=== PATIENT | female | born 1960 | race Caucasian/White ===

== ENCOUNTER 2023-11-15 00:44 | Day surgery (SDC) | payer MEDICARE, SELFPAY ==
[2023-11-01 16:22] VITALS: BMI 35.9
--- NOTE | 2023-11-01 16:33 | PC.NURSE ---
Report to the Outpatient Waiting Room, entrance under the green pavilion located off [facility], at time __7:00AM on date ___11/15/23____. Planned Procedure Time: ___9:00AM . Time changes happen often and if your time is changed the preop area will call you the afternoon before. - You and your visitor will be asked to self-screen and do not enter if you have any COVID symptoms. - A mask is optional within the hospital at this time. Patients may have clear liquids (water, carbonated beverages, clear teas, apple juice) until 3 hours prior to surgery with a maximum of 20 ounces. - No food from midnight until time of surgery - Infants may have breast milk until 4 hours before surgery, infant formula 6 hours prior to surgery. - Children will be allowed to drink immediately following surgery. If applicable, please bring a bottle or sippy cup to assist with drinking. Juice, water, soda, and popsicles are readily available. For infants on formula, please bring formula the day of surgery. Pacifiers are allowed. Take the following medications with a SIP of water the morning of surgery: ____LORAZEPAM, SERTRALINE DO NOT STOP ANY OF YOUR OTHER PRESCRIPTION MEDICATIONS PRIOR TO SURGERY ?EXCEPT THE FOLLOWING Medications to discontinue per physician ___HOLD ALL VITAMINS/SUPPLEMENTS 3 DAYS PRE-OP- LAST DOSE 11/11/[address] LANZA- PT CALLING TO VERIFY Please no make-up, nail citizen of [place], hairspray, perfume, deodorant, or body powder the day of surgery. No jewelry (including any body piercings) or valuables the day of surgery, leave them at home. Please take a shower or bath the night before, or the morning of, surgery with an antibacterial soap. Wear comfortable, loose fitting clothing. Children are encouraged to wear pajamas. - Jewelry must be removed prior to entering the operating room. Rings and piercings that are not removed may be cut off. - The hospital will not accept responsibility for valuables. - Please leave all valuables, including medications, at home the day of surgery. If you are going home after surgery, a licensed car driver must drive you home. - NO public transportation without another adult if you receive anesthesia. - We recommend that an adult stay with you for 24 hours following discharge. - We also recommend that you do not drive, make important decision, drink alcoholic beverages, or take any drugs that were not prescribed by your health care provider for at least 24 hours after your discharge time. For Pediatric surgeries, we recommend two adults accompany the child home. Follow any additional instructions given to you from your surgeon. If you or anyone in your household have experienced Covid symptoms in the past week, please notify your surgeon or the nurse liaison at the phone number below for possible testing. Telephone instructions given to ___PATIENT and asked if any additional questions and then verbalized understanding. Patient advised to call surgeon office or pre surgery nurse liaison [phone] if any additional questions.
[2023-11-15] MEDS: LACTATED RINGERS 1,000 ML 30 ML IV CONT (07:10)
--- NOTE | 2023-11-15 07:14 | WPDHPUPDATE1 ---
History and Physical Update Update Date/Time: 11/15/23 07:14 History and Physical has been reviewed, including an updated exam of the patient. There are NO changes in the patient's condition. Risks, benefits, and alternatives have been discussed and questions answered. Patient agrees to proceed with procedure.
[2023-11-15 07:15] VITALS: BP 139/76; PULSE 95; RESP 16; TEMP 36.1; O2SAT 98
[2023-11-15] MEDS: ACETAMINOPHEN 500 MG TABLET 1000 MG PO (07:15)
--- NOTE | 2023-11-15 07:15 | PM.IMHP ---
H&P: HPI History of Present Illness Date/Time: 11/15/23 07:15 Chief Complaint: Postmenopausal bleeding Narrative: The patient is a 63-year-old with postmenopausal bleeding and a thickened endometrium. It was recommended to undergo D&C hysteroscopy for further evaluation. Risks of infection, bleeding, perforation, and possible pathology are discussed. Patient voices understanding and agrees to proceed. Review of Systems Review of Systems: not repeated day of surgery; patient states no changes in status PMFSH Past Medical History Medical History (Updated 11/15/23 @ 07:18 by Randee Ackerman MD) Anxiety GERD (gastroesophageal reflux disease) HTN (hypertension) Obesity Surgical History Surgical History (Updated 11/15/23 @ 07:18 by Randee Ackerman MD) History of History of detached retina repair History of knee replacement bilateral Hx of cataract removal with insertion of prosthetic lens Social History Social History Smoking status: Never smoker Living arrangements: with family Additional living arrangements comments: HUSB Spiritual care concerns: No Meds Home Medications and Allergies Home Medications Medication Instructions Recorded Confirmed Type albuterol sulfate 90 mcg/actuation 2 inh inhalation Q4-5H PRN 11/01/23 11/01/23 History aerosol inhaler Shortness Of Breath Or Wheezing aspirin 81 mg tablet 81 mg PO DAILY 11/01/23 11/01/23 History cholecalciferol (vitamin D3) 25 25 mcg PO DAILY 11/01/23 11/01/23 History mcg (1,000 unit) capsule lisinopril 5 mg tablet 5 mg PO QAM 11/01/23 11/01/23 History lorazepam 1 mg tablet 1 mg PO BID PRN Anxiety 11/01/23 11/01/23 History pantoprazole 40 mg tablet,delayed 40 mg PO DAILY 11/01/23 11/01/23 History release sertraline 50 mg tablet 50 mg PO QAM 11/01/23 11/01/23 History temazepam 30 mg capsule 30 mg PO HS 11/01/23 11/01/23 History valacyclovir 1 gram tablet 2,000 mg PO BID PRN Outbreak 11/01/23 11/01/23 History Allergies Allergy/AdvReac Type Severity Reaction Status Date / Time hydrocodone AdvReac Agitated Verified 11/01/23 16:16 levofloxacin [From Levaquin] AdvReac muscle and Verified 11/01/23 16:15 joint pain Exam Const: General: healthy appearing and alert Orientation/consciousness: patient oriented x3 Resp: Effort & Inspection: normal respiratory effort : External Female Exam: normal external appearance Speculum Exam - Vagina: normal appearance of the vagina and normal vaginal discharge Speculum Exam - Cervix: normal appearance of the cervix Bimanual exam- vagina & uterus: uterine size normal and consistency normal Bimanual Exam- Adnexa, other: normal adnexae and No adnexal tenderness Neuro: General: patient oriented x3 Assessment and Plan Assessment and plan (1) Post-menopause bleeding: Code(s): N95.0 - Postmenopausal bleeding Status: Acute Assessment and Plan: plan to proceed with D&C hysteroscopy
--- NOTE | 2023-11-15 07:17 | P.PNAN_ITS ---
Anes - Initial Pre Proc Eval Procedure: Operation Date: 11/15/23 09:00 Proposed Procedures p Hysteroscopy Dilation and Curettage - Randee Ackerman MD Date/Time: 11/15/23 07:17 Surgeon: Randee Ackerman MD Pre Op Diagnosis: post menopausal bleeding Patient Data Age: 63 Gender: F Height: 1.6 m Weight: 92 kg Allergies Allergy/AdvReac Type Severity Reaction Status Date / Time hydrocodone AdvReac Agitated Verified 11/01/23 16:16 levofloxacin [From Levaquin] AdvReac muscle and Verified 11/01/23 16:15 joint pain Home Medications Medication Instructions Recorded Confirmed Type albuterol sulfate 90 mcg/actuation 2 inh inhalation Q4-5H PRN 11/01/23 11/01/23 History aerosol inhaler Shortness Of Breath Or Wheezing aspirin 81 mg tablet 81 mg PO DAILY 11/01/23 11/01/23 History cholecalciferol (vitamin D3) 25 25 mcg PO DAILY 11/01/23 11/01/23 History mcg (1,000 unit) capsule lisinopril 5 mg tablet 5 mg PO QAM 11/01/23 11/01/23 History lorazepam 1 mg tablet 1 mg PO BID PRN Anxiety 11/01/23 11/01/23 History pantoprazole 40 mg tablet,delayed 40 mg PO DAILY 11/01/23 11/01/23 History release sertraline 50 mg tablet 50 mg PO QAM 11/01/23 11/01/23 History temazepam 30 mg capsule 30 mg PO HS 11/01/23 11/01/23 History valacyclovir 1 gram tablet 2,000 mg PO BID PRN Outbreak 11/01/23 11/01/23 History Patient hx anesthesia problems: none Family hx anesthesia problems: none Results Review: All pre-operative results and documents have been reviewed as part of the pre- operative evaluation. [facility] Past Medical History Medical History (Updated 11/15/23 @ 07:17 by Carroll Villar MD) Obesity Post-menopause bleeding Social History Social History Smoking status: Never smoker Living arrangements: with family Additional living arrangements comments: HUSB Spiritual care concerns: No Anes - Eval Final PreProcedure Day of Procedure 11/15/23 07:17 Patient weight: obese Heart: regular rate and rhythm Lungs: clear to auscultation Airway: Mallampati scale class II Neurological: alert and oriented Last oral intake: >/= 8 hours ASA classification: III Emergent: no Anesthetic plan: proceed Anesthesia type and monitoring: general GIVS and standard monitoring Results Review: All pre-operative results and documents have been reviewed as part of the pre- operative evaluation. Informed Consent: The patient's anesthetic plan and its attendant risks and benefits were discussed with the patient/family/POA. Questions were solicited and answers provided to the satisfaction of the patient/family/POA.
--- NOTE | 2023-11-15 08:01 | P.OP_ITS ---
Procedure Note - Detailed Date of Procedure 11/15/23 Pre-op Diagnosis post menopausal bleeding Post-op Diagnosis Same Procedure Performed D&C hysteroscopy Surgeon Randee Ackerman MD Anesthesia MAC and Local Findings uterus sounds to 8cm; endometrial cyst on the left sidewall; atrophic otherwise Description of Procedure The patient is taken to the operating room and placed under anesthesia in the dorsal lithotomy position. She was prepped and draped in usual sterile fashion. [place] speculum was placed in the vagina and the cervix grasped on the anterior lip with a tenaculum. The uterus is sounded to 8cm. The diagnostic hysteroscope was placed with the above-stated findings. The small Aveeta resection device is placed and the cyst is removed in its entirety. The resection device and hysteroscope are removed. The sharp OO curette is used to curette the endometrium until a good uterine cry was noted in all areas. Minimal of any material is obtained consistent with the atrophic appearance. All instruments are removed. Patient is awakened from anesthesia. Sponge, needle, and instrument counts are correct per the OR staff. Estimated Blood Loss 5 Drains No Packing No Pathology Yes ( Endometrial shavings and curettings) Complications No immediate complications Condition Stable Disposition PACU
[2023-11-15 08:03] VITALS: BP 120/80; PULSE 82; RESP 14; O2SAT 95
[2023-11-15 08:30] VITALS: BP 135/83; PULSE 67
[2023-11-15] MEDS: KETOROLAC 30 MG/ML VIAL (*BKC) IV PUSH (08:30)
[2023-11-15] MEDS: fentaNYL CITRATE INJ (*CRX) 100 MCG/2 ML VIAL 25 MCG IV PUSH ×2 (08:50→08:53)
[2023-11-15 09:00] VITALS: BP 123/72; PULSE 68
== END 2023-11-15 09:04 | disposition home or self-care (01) ==
PROVIDERS: Visit Provider Obstetrics & Gynecology Gynecology
PROC: 0U5B8ZZ Destruction of Endometrium, Via Natural or Artificial Opening Endoscopic (ICD-10-PCS; CPT 58563; principal; 2023-11-15 09:00)
DX: N95.0 Postmenopausal bleeding (principal); N85.8 Other specified noninflammatory disorders of uterus; I10 Essential (primary) hypertension; K21.9 Gastro-esophageal reflux disease without esophagitis; F41.9 Anxiety disorder, unspecified; Z79.51 Long term (current) use of inhaled steroids; Z79.82 Long term (current) use of aspirin; E66.9 Obesity, unspecified; Z68.34 Body mass index [BMI] 34.0-34.9, adult
CPT/HCPCS: 58558; 88305; A9270; J1100; J1885; J2250; J2405; J2704; J3010; J7120